=== PATIENT | female | born 1985 | race Caucasian/White ===

== ENCOUNTER 2017-10-04 10:51 | Day surgery (SDC) | payer BC ==
[~2017-10-04] VITALS: Ht 162.6 cm; Wt 83.0 kg
[~2017-10-04 10:51] MED LIST: GENERESS FE CH1 EACH PO; IBUP800 PO; OXYACE5T PO; Verotin-Gr Cap1 EACH PO
== END 2017-10-04 23:04 | disposition home or self-care (01) ==
LOC: ORSCMMR 10:51 → ORSCSDS 12:00 → ORSCMMR 12:00 → ORD 12:00 → ORSCMMR 23:04
PROVIDERS: Obstetrics & Gynecology
PROC: 0UT74ZZ Resection of Bilateral Fallopian Tubes, Percutaneous Endoscopic Approach (ICD-10-PCS; principal; 2017-10-04 12:00)
DX: Z30.2 Encounter for sterilization (principal); N73.6 Female pelvic peritoneal adhesions (postinfective)
CPT/HCPCS: 88302; J0171; J1100; J1885; J2250; J2405; J2550; J2710; J3010; J7120

== ENCOUNTER → 2020-06-21 | Outpatient (CLI) | payer BC ==
[2020-06-22 16:09] LABS: HPV 16 Negative (Negative); HPV 18 Negative (Negative); HPV OTHER HR TYPES Negative (Negative)
== END | disposition home or self-care (01) ==
LOC: LAB SHORT 15:53 → PLD 15:53
PROVIDERS: Obstetrics & Gynecology
DX: Z01.419 Encounter for gynecological examination (general) (routine) without abnormal findings (principal)
CPT/HCPCS: 87624; G0123

== ENCOUNTER → 2022-05-10 | Outpatient (CLI) | payer BC ==
[2022-05-10 14:17] LABS: BASOPHILS ABSOLUTE AUTO 0.08 K/mm3 (0.00-0.23); BASOPHILS PERCENT AUTO 1 % (0-2); EOSINOPHILS ABSOLUTE AUTO 0.29 K/mm3 (0.00-0.68); EOSINOPHILS PERCENT AUTO 3 % (0-6); Hematocrit 29.8 % (33.0-51.0); Hemoglobin 8.9 g/dL (11.5-16.0); IMMATURE GRAN ABSOLUTE AUTO 0.03 K/mm3 (0.00-0.10); IMMATURE GRAN PERCENT AUTO 0 % (0-1); LYMPHOCYTES PERCENT AUTO 18 % (21-46); MONOCYTES ABSOLUTE AUTO 0.57 K/mm3 (0.16-1.47); MONOCYTES PERCENT AUTO 5 % (4-13); Mean Corpuscular HGB 21.5 pg (26.0-34.0); Mean Corpuscular HGB Conc 29.9 g/dL (31.5-36.5); Mean Corpuscular Volume 72 fL (80-100); Mean Platelet Volume 10.6 fL (9.1-12.4); NEUTROPHILS ABSOLUTE AUTO 7.83 K/mm3 (1.96-9.15); NEUTROPHILS PERCENT AUTO 73 % (41-73); Platelet Count 375 K/mm3 (150-400); RDW Coefficient Variation 16.7 % (11.7-14.2); RDW Standard Deviation 43.3 fL (35.1-46.3); Red Blood Cell Count 4.13 M/mm3 (3.80-5.20)
[2022-05-10 14:26] LABS: Albumin, Blood 3.2 g/dL (3.4-5.0); Albumin/Globulin Ratio 0.7 (0.8-1.8); Bilirubin, Total 0.2 mg/dL (0.1-1.0); Bun/Creatinine Ratio 8.2 (12.0-20.0); Calcium, Blood 8.4 mg/dL (8.5-10.1); Creatinine, Blood 0.85 mg/dL (0.40-1.00); Globulin, Blood 4.7 g/dL (2.2-4.0); Potassium, Blood 3.7 mmol/L (3.5-5.5); Total Protein, Blood 7.9 g/dL (6.4-8.2)
== END | disposition home or self-care (01) ==
LOC: LAB SHORT 14:11
PROVIDERS: Physician Assistant
DX: R10.9 Unspecified abdominal pain (principal); R07.89 Other chest pain; I26.99 Other pulmonary embolism without acute cor pulmonale
CPT/HCPCS: 80053; 82150; 83690; 85025; 85379

== ENCOUNTER 2022-05-14 00:39 | Inpatient (IN) | payer BC ==
[~2022-05-14] VITALS: Ht 165.1 cm; Wt 80.0 kg
[2022-05-14 01:22] LABS: BASOPHILS ABSOLUTE AUTO 0.04 K/mm3 (0.00-0.23); BASOPHILS PERCENT AUTO 1 % (0-2); EOSINOPHILS ABSOLUTE AUTO 0.24 K/mm3 (0.00-0.68); EOSINOPHILS PERCENT AUTO 3 % (0-6); Hematocrit 31.3 % (33.0-51.0); Hemoglobin 9.2 g/dL (11.5-16.0); IMMATURE GRAN ABSOLUTE AUTO 0.02 K/mm3 (0.00-0.10); IMMATURE GRAN PERCENT AUTO 0 % (0-1); LYMPHOCYTES ABSOLUTE AUTO 3.69 K/mm3 (0.84-5.20); LYMPHOCYTES PERCENT AUTO 44 % (21-46); MONOCYTES ABSOLUTE AUTO 0.48 K/mm3 (0.16-1.47); MONOCYTES PERCENT AUTO 6 % (4-13); Mean Corpuscular HGB 21.5 pg (26.0-34.0); Mean Corpuscular HGB Conc 29.4 g/dL (31.5-36.5); Mean Corpuscular Volume 73 fL (80-100); Mean Platelet Volume 11.2 fL (9.1-12.4); NEUTROPHILS ABSOLUTE AUTO 4.02 K/mm3 (1.96-9.15); NEUTROPHILS PERCENT AUTO 47 % (41-73); Platelet Count 456 K/mm3 (150-400); RDW Coefficient Variation 17.8 % (11.7-14.2); RDW Standard Deviation 43.7 fL (35.1-46.3); Red Blood Cell Count 4.27 M/mm3 (3.80-5.20); White Blood Cell Count 8.49 K/mm3 (4.00-11.30)
[2022-05-14] MEDS ORDERED: IRON18 MG PO (01:24)
[2022-05-14] MEDS ORDERED: XARELTO1 EAC1 PO (01:24)
[2022-05-14 01:35] LABS: Albumin, Blood 2.9 g/dL (3.4-5.0); Albumin/Globulin Ratio 0.7 (0.8-1.8); Bilirubin, Total 0.3 mg/dL (0.1-1.0); Calcium, Blood 8.4 mg/dL (8.5-10.1); Creatinine, Blood 0.93 mg/dL (0.40-1.00); Globulin, Blood 4.3 g/dL (2.2-4.0); Potassium, Blood 3.9 mmol/L (3.5-5.5); Total Protein, Blood 7.2 g/dL (6.4-8.2)
[2022-05-14 05:20] LABS: Hemoglobin 7.9 g/dL (11.5-16.0); Mean Corpuscular HGB 22.1 pg (26.0-34.0); Mean Corpuscular HGB Conc 30.4 g/dL (31.5-36.5); Mean Corpuscular Volume 73 fL (80-100); Mean Platelet Volume 10.6 fL (9.1-12.4); Platelet Count 349 K/mm3 (150-400); RDW Coefficient Variation 17.4 % (11.7-14.2); RDW Standard Deviation 43.5 fL (35.1-46.3); Red Blood Cell Count 3.58 M/mm3 (3.80-5.20); White Blood Cell Count 11.14 K/mm3 (4.00-11.30)
[2022-05-14 10:35] LABS: Hematocrit 30.9 % (33.0-51.0); Hemoglobin 9.6 g/dL (11.5-16.0)
[2022-05-14 12:37] LABS: Hemoglobin 9.3 g/dL (11.5-16.0)
--- NOTE | 2022-05-14 18:02 | NUR ---
PT SUMMARY: PT ARRIVED IN THE UNIT AT APPROX 0845A, PT IS HERE FOR VAGINAL BLEED RECEIVED 1U PRBC FOR THE SHIFT, TRENDING HEMOGLOBIN. PT HAD ATLEAST 3 PERIPADS USED FIRST PAD HAS SOME SMALL BLOOD CLOTS WITH MEDIUM AMOUNT OF BLOOD THE REST OF THE 2 PADS ARE SMALL AMOUNT WITH NO CLOTS. PT HAS BEEN INDEPENDENT IN THE ROOM DENIES ANY DIZZINESS, PAIN/DISCOMFORT. VITALS HRR SR 80'S, SBP SOFT 95-110'S, SATS ABOVE 95% ON RA, AFEBRILE. DR WATTERS CAME TO SEE PT TODAY STARTED ON DEPO PROVERA 10MG PO DAILY, IRON IV X1, PLAN TO GET IR CONSULT NOT TIL SUNDAY FOR A PROCEDURE AND TO RESTART XARELTO TOMORROW IF HGB IS STABLE AND BLEEDING SLOWS DOWN. PT AND AWARE OF THE PLAN OF CARE. NO OTHER ISSUES AT THIS TIME, SCDS IN PLACE FOR DVT PROPHYLAXIS, DIET RESUMED PT TOLERATED. PT HAS BEEN CALLING APPROPRIATELY ABLE TO MAKE NEEDS KNOWN, CALL LIGHTS IN REACH WILL REPORT TO ONCOMING SHIFT
[2022-05-14 18:37] LABS: Hemoglobin 9.3 g/dL (11.5-16.0)
[2022-05-15 00:33] LABS: Hematocrit 28.8 % (33.0-51.0)
[2022-05-15 06:42] LABS: BASOPHILS ABSOLUTE AUTO 0.05 K/mm3 (0.00-0.23); BASOPHILS PERCENT AUTO 1 % (0-2); EOSINOPHILS ABSOLUTE AUTO 0.16 K/mm3 (0.00-0.68); EOSINOPHILS PERCENT AUTO 2 % (0-6); Hematocrit 31.7 % (33.0-51.0); Hemoglobin 9.6 g/dL (11.5-16.0); IMMATURE GRAN ABSOLUTE AUTO 0.01 K/mm3 (0.00-0.10); IMMATURE GRAN PERCENT AUTO 0 % (0-1); LYMPHOCYTES ABSOLUTE AUTO 2.96 K/mm3 (0.84-5.20); LYMPHOCYTES PERCENT AUTO 34 % (21-46); MONOCYTES ABSOLUTE AUTO 0.45 K/mm3 (0.16-1.47); MONOCYTES PERCENT AUTO 5 % (4-13); Mean Corpuscular HGB 22.2 pg (26.0-34.0); Mean Corpuscular HGB Conc 30.3 g/dL (31.5-36.5); Mean Corpuscular Volume 73 fL (80-100); Mean Platelet Volume 10.8 fL (9.1-12.4); NEUTROPHILS PERCENT AUTO 58 % (41-73); Platelet Count 425 K/mm3 (150-400); RDW Coefficient Variation 19.4 % (11.7-14.2); RDW Standard Deviation 46.8 fL (35.1-46.3); Red Blood Cell Count 4.32 M/mm3 (3.80-5.20); White Blood Cell Count 8.73 K/mm3 (4.00-11.30)
[2022-05-15 07:03] LABS: Albumin/Globulin Ratio 0.7 (0.8-1.8); Bilirubin, Total 0.4 mg/dL (0.1-1.0); Bun/Creatinine Ratio 11.8 (12.0-20.0); Calcium, Blood 8.6 mg/dL (8.5-10.1); Creatinine, Blood 0.76 mg/dL (0.40-1.00); Globulin, Blood 4.2 g/dL (2.2-4.0); Potassium, Blood 3.9 mmol/L (3.5-5.5); Total Protein, Blood 7.2 g/dL (6.4-8.2)
--- NOTE | 2022-05-15 08:02 | NUR ---
SHIFTS SUMMARY PT AOX4 T/O SHIFT, DENIES SIGNIFICANT FEELING OF DIZZINESS OR LIGHTHEADEDNESS. SR 60'S-100'S INCREASING WHEN UP FROM BED TO BATHROOM. + ORTHOSTATICS WHEN UP TO SITTING FROM LAYING, BP BACK UP WITH STANDING. PT HAD SMALL AMOUNTS OF BLEEDING AT START OF SHIFT NOT FILLING A WHOLE PAD IN A SEVERAL HOURS WITH SOME CLOTTING. TOWARDS THE EARLIER AM LATER IN THIS RN'S NOC SHIFT, BLEEDING HAS SEEMED TO INCREASE FILLING WHAT COULD BE CONSIDERED AN AVERAGE PAD IN TWO HOURS WITH SOME CLOTTING. PT ALSO C/O FEELING OF "WHEEZING" SHE DESCRIBES IN HER LUNGS THIS AM, SIMILAR TO SUNDAY WHEN SHE WAS DX WITH BLOOD CLOTS. THIS RN CALLS DR MEZA TO UPDATE AND OBTAIN FURTHER ORDERS, ORDER FOR CHEST XRAY PLACED AND PT TAKEN DOWN TO IMAGING, PT STATES BREATHING FEELS WORSE ON ARRIVAL BACK FROM XRAY AND STATES SOME PAIN DOWN IN R LUNG. LS COARSE WITH CRACKLES ON R SIDE NOT CLEARED WITH COUGHING WHICH APPEARS NAGGING AND INCREASING IN FREQUENCY. REPORT TO DAY RN THIS AM, CONCERNS EXPRESSED FOR POSSIBLE NEED FOR FURTHER DIAGNOSTICS TO R/O WORSENING PE. REPORT GIVEN AT BEDSIDE WITH PT. SATS 97-98% ON RA.
[2022-05-15 09:40] LABS: Hematocrit 31.4 % (33.0-51.0); Hemoglobin 9.6 g/dL (11.5-16.0)
[2022-05-15 10:04] LABS: International Normalized Ratio 1.05
[2022-05-15 11:15] LABS: Hematocrit 30.9 % (33.0-51.0); Hemoglobin 9.5 g/dL (11.5-16.0)
[2022-05-15 16:24] LABS: Hematocrit 29.3 % (33.0-51.0); Hemoglobin 8.9 g/dL (11.5-16.0)
--- NOTE | 2022-05-15 17:55 | NUR ---
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
[2022-05-16 00:29] LABS: Hematocrit 29.6 % (33.0-51.0); Hemoglobin 8.9 g/dL (11.5-16.0)
--- NOTE | 2022-05-16 02:45 | NUR ---
PT UP TO USE BATHROOM, PAD IS REED THAN PRIOR ABOUT 2 HRS AGO NOW. NO CLOTS SEEN. PT MORE HYPOTENSIVE AT THIS TIME, THIS RN HAS CONTACTED PROVIDER, ORDERS PLACED FOR STAT H&H TO NOTIFY PROVIDER WITH RESULT AND FLUID BOLUS AT THIS TIME FOR LOW BP. QUAN FROM ICU COMING TO OBTAIN POWERGLIDE D/T FREQUENT LAB DRAWS AND NEED FOR SECOND LINE FOR BOLUS D/T HEPARIN INFUSING. PT IS AGREEABLE TO THIS PLAN. THIS RN WEIGHS PAD, 2 OZ OF BLOOD IN THIS PAD.
--- NOTE | 2022-05-16 03:05 | NUR ---
PT UPDATE QUAN RN INSERTS POWERGLIDE, NS STARTED INFUSING PER BOLUS ORDERS FOLLOWING BLOOD DRAW FOR STAT H&H. PT IS AOX4, BREATHING EVEN AND UNLABORED AT THIS TIME. BP IS 94/43 AT THIS TIME MAP (57), WILL CONTINUE MONITORING BP AT BEDSIDE FLUID BOLUS INFUSES AT THIS TIMES. PT HR UP TO 130'S WHEN UP TO BATHROOM PRIOR TO POWERGLIDE INSERTION, HOWEVER, BP INCREASED WHEN TAKEN AFTER PT UP TO SIDE OF BED AND PT DENIED ANY DIZZINESS.
[2022-05-16 03:06] LABS: Hematocrit 28.9 % (33.0-51.0)
--- NOTE | 2022-05-16 05:45 | NUR ---
SHIFT SUMMARY PT AOX4, BREATHING EVEN AND UNLABORED T/O SHIFT, SR-ST 70'S-100'S. PT APPEARED TO TACH UP TO 130'S WHEN UP TO BATHROOM PRIOR TO POWERGLIDE INSERTION. APPEARED TO DECREASE NEXT TIME UP TO BATHROOM FOLLOWING FLUID BOLUS. CONCERN FOR INCREASED HYPOTENSION, BLEEDING HAD PICKED UP FOLLOWING INCREASE IN HEPARIN GTT AND FOLLOWING HEPARIN BOLUS. BP WAS IMPROVED FOLLOWING FLUID BOLUS AND H&H ORDERED BY DR BAY STABLE. VAGINAL BLEEDING APPEARED LESS ON NEXT TRIP TO THE BATHROOM ABOUT 2 HOURS LATER FROM PRIOR CHANGED PAD, DID NOT APPEARS TO BE FULL OR SATURATED. MINIMAL CLOTS. PT DENIES CP/SOB/DIZZINESS. HEP GTT CONTINUES AT THIS TIME AT 20 U/KG/HR.
--- NOTE | 2022-05-16 06:45 | NUR ---
LAB UPDATE DISCUSSED WITH LAB AND BLOOD BANK ASSISTANT PUSHING SEPARATE LAB ORDERS TO SAME TIME FOR SINGLE DRAW FOR H&H, APTT, AND BMP D/T RECENT H&H DRAW.
--- NOTE | 2022-05-16 08:00 | NUR ---
INITIAL ASSESSMENT: Patient is awake, lying in bed watching TV. She is alert and oriented. She denies pain at this time, just notes some discomfort to her right AC IV site. HRR. LS CTA, Biox 98% on RA. Pt has PE, currrently has hep gtt running at 20 units/kg/hr. BT+, pt states she has not had BM since arrival to the hospital, she states it is normal for her to go a couple of days. PPP. PT states vaginal bleeding is about the same, she is saturating a pad approx every 2-3 hours. VSS. Patient denies other needs at this time. Call light in reach.
[2022-05-16 08:45] LABS: Hematocrit 28.3 % (33.0-51.0); Hemoglobin 8.9 g/dL (11.5-16.0)
[2022-05-16 09:10] LABS: Bun/Creatinine Ratio 11.6 (12.0-20.0); Calcium, Blood 8.5 mg/dL (8.5-10.1); Creatinine, Blood 0.87 mg/dL (0.40-1.00); Potassium, Blood 3.8 mmol/L (3.5-5.5)
[2022-05-16 09:57] LABS: SARS-Cov-2 (COVID-19) PCR, MMC NEGATIVE (NEGATIVE)
--- NOTE | 2022-05-16 11:30 | NUR ---
UPDATE: VSS. Patient is resting comfortably, she was able to take a shower with her husbands assistance. Hep gtt increased to 21 units/kg/hr. Dr. Weathers came by the room and consented the patient. The patient denies other needs at this time. Call light in reach.
--- NOTE | 2022-05-16 13:50 | NUR ---
Pt to the petroleum refinery laborer for uterine embolization.
--- NOTE | 2022-05-16 16:10 | NUR ---
Patient returned from the excavation laborer after a successful uterine embolization. She reports minimal cramping at this time. Right groin site with angioseal, CHG dressing CDI. VSS. Hep gtt to resume 2 hours post procedure, pharmacy made aware. Patient is supine. Call light in reach, will continue to monitor.
[2022-05-16 16:27] LABS: Hematocrit 26.8 % (33.0-51.0); Hemoglobin 8.2 g/dL (11.5-16.0)
--- NOTE | 2022-05-16 18:19 | NUR ---
SUMMARY: Patient has been alert and oriented T/O the shift. She has denied pain most of the shift, but reported cramping [id number] relieved well with 1 mg Dilaudid. HRR, Blood pressure has remained stable T/O the shift. LS CTA, Biox has been 98-100% on RA, she has a previously diagnosed, on Hep gtt at 21 units/kg/hr. BT+. She has been having some abd cramping post-procedure. She has been saturating 2/3 of a pad every 2-3 hours, H/H Q6 has remained stable. Right groin site with angioseal and CHG site has remained stable, no oozing present, and soft. Hep gtt restarted at 1745. Patient is now up to 60 degrees with stable groin site. No other acute changes, will report to oncoming RN.
[2022-05-16 22:39] LABS: Hematocrit 26.5 % (33.0-51.0); Hemoglobin 8.4 g/dL (11.5-16.0)
[2022-05-17 04:12] LABS: Hematocrit 28.2 % (33.0-51.0); Hemoglobin 8.7 g/dL (11.5-16.0)
--- NOTE | 2022-05-17 05:47 | NUR ---
PT WALKED TO BATHROOM 3-4 TIMES, NO BM BUT BS HYPERACTIVE AND PT REPORTS PASSING QUITE A BIT OF GAS, VSS, ON RA, HEPARIN AT 21 UNITS/27.7MLS PER HOUR, PT RESTED MUCH OF THE SHIFT, HGB REMAINING STABLE AT 8.7, PREVIOUS VALUE WAS 8.4, , PAIN TREATED WITH DILAUDID X'S 1 AND PHENERGA GIVEN FOR NAUSEA X'S 1
[2022-05-17 10:32] LABS: Hematocrit 26.7 % (33.0-51.0); Hemoglobin 8.3 g/dL (11.5-16.0)
[2022-05-17] MEDS ORDERED: BENZ100A PO (13:27)
[2022-05-17] MEDS ORDERED: HYDR1TAB94 PO (13:28)
[2022-05-17] MEDS ORDERED: ONDA4ODT MM (13:29)
[2022-05-17] MEDS ORDERED: MEDR10 PO (13:30)
--- NOTE | 2022-05-17 14:48 | NUR ---
DISCHARGE NOTE PATIENT ALERT AND ORIENTED X4. PATIENT WAS PROVIDED DISCHARGE INSTRUCTIONS. EDUCATED PATIENT ON NEW MEDICATIONS AND INFORMED WHERE AND WHEN TO FOLLOW UP AFTER DISCHARGE. HEPARIN DRIP DISCONTINUED AND PROVIDED PATIENT WITH INITIAL DOSE OF XARELTO. POWERGLIDE REMOVED. PATIENT ESCORTED TO HOME VEHICLE.
== END 2022-05-17 13:58 | disposition home or self-care (01) | DRG 749 ==
LOC: ER 00:39 → PCU 06:23
PROVIDERS: Family Medicine; Radiology Diagnostic Radiology; Student in an Organized Health Care Education/Training Program; ADMIT Internal Medicine
PROC: 30233N1 Transfusion of Nonautologous Red Blood Cells into Peripheral Vein, Percutaneous Approach (ICD-10-PCS; 2022-05-14)
PROC: 04LE3ZT Occlusion of Right Uterine Artery, Percutaneous Approach (ICD-10-PCS; principal; 2022-05-16)
PROC: 04LF3ZU Occlusion of Left Uterine Artery, Percutaneous Approach (ICD-10-PCS; 2022-05-16)
PROC: B41FYZZ Fluoroscopy of Right Lower Extremity Arteries using Other Contrast (ICD-10-PCS; 2022-05-16)
PROC: B44LZZZ Ultrasonography of Femoral Artery (ICD-10-PCS; 2022-05-16)
DX: D25.9 Leiomyoma of uterus, unspecified (principal); R57.8 Other shock; D62 Acute posthemorrhagic anemia; D68.59 Other primary thrombophilia; C54.1 Malignant neoplasm of endometrium; N92.0 Excessive and frequent menstruation with regular cycle; I95.9 Hypotension, unspecified; T45.515A Adverse effect of anticoagulants, initial encounter; R55 Syncope and collapse; Z20.822 Contact with and (suspected) exposure to COVID-19; Z86.711 Personal history of pulmonary embolism; Z79.01 Long term (current) use of anticoagulants; Z79.899 Other long term (current) drug therapy; Z98.51 Tubal ligation status
CPT/HCPCS: 36415; 36430; 37243; 71046; 75716; 75736; 76830; 76856; 76937; 80048; 80053; 84703; 85014; 85018; 85025; 85027; 85610; 85730; 86850; 86900; 86901; 86923; 93005; 93010; 93306; 93970; 96360; 99152; 99153; 99285-25; A9270; C1751; C1760; C1769; C1887; C1894; J0690; J1170; J1644; J1885; J2250; J2405; J2916; J3010; J7030; P9016; Q9967; U0004

== ENCOUNTER 2023-02-15 06:01 | Emergency (ER) | payer BC ==
[~2023-02-15] VITALS: Ht 165.1 cm; Wt 79.8 kg
[~2023-02-15 06:01] MED LIST changes: +BENZ100A PO; +HYDR1TAB94 PO; +IRON18 MG PO; +MEDR10 PO; +Norethindrone0.35 MG PO; +ONDA4ODT MM; +XARELTO1 EAC1 PO; +XARELTO20 MG PO; +[UNRECOGNIZED DRUG - CODE] PO
[2023-02-15 07:18] LABS: BASOPHILS ABSOLUTE AUTO 0.03 K/mm3 (0.00-0.23); BASOPHILS PERCENT AUTO 1 % (0-2); EOSINOPHILS ABSOLUTE AUTO 0.05 K/mm3 (0.00-0.68); EOSINOPHILS PERCENT AUTO 1 % (0-6); Hematocrit 50.1 % (33.0-51.0); Hemoglobin 16.9 g/dL (11.5-16.0); IMMATURE GRAN ABSOLUTE AUTO 0.01 K/mm3 (0.00-0.10); IMMATURE GRAN PERCENT AUTO 0 % (0-1); LYMPHOCYTES ABSOLUTE AUTO 2.03 K/mm3 (0.84-5.20); LYMPHOCYTES PERCENT AUTO 32 % (21-46); MONOCYTES PERCENT AUTO 6 % (4-13); Mean Corpuscular HGB 30.7 pg (26.0-34.0); Mean Corpuscular HGB Conc 33.7 g/dL (31.5-36.5); Mean Corpuscular Volume 91 fL (80-100); Mean Platelet Volume 10.2 fL (9.1-12.4); NEUTROPHILS PERCENT AUTO 61 % (41-73); Platelet Count 273 K/mm3 (150-400); RDW Coefficient Variation 11.5 % (11.7-14.2); RDW Standard Deviation 38.5 fL (35.1-46.3); Red Blood Cell Count 5.51 M/mm3 (3.80-5.20); White Blood Cell Count 6.42 K/mm3 (4.00-11.30)
[2023-02-15 07:46] LABS: Albumin/Globulin Ratio 0.9 (0.8-1.8); Bilirubin, Total 0.7 mg/dL (0.1-1.0); Calcium, Blood 9.4 mg/dL (8.5-10.1); Creatinine, Blood 0.87 mg/dL (0.40-1.00); Globulin, Blood 4.4 g/dL (2.2-4.0); Potassium, Blood 3.8 mmol/L (3.5-5.5); Total Protein, Blood 8.4 g/dL (6.4-8.2)
[2023-02-15 08:08] VITALS: BP 99/64
== END 2023-02-15 08:13 | disposition home or self-care (01) ==
LOC: ER 06:01
PROVIDERS: Emergency Medicine
DX: R07.89 Other chest pain (principal); R53.83 Other fatigue; R06.02 Shortness of breath; Z79.899 Other long term (current) drug therapy; D64.9 Anemia, unspecified
CPT/HCPCS: 71260; 80053; 84703; 85025; 93005; 93010; 99285-25; Q9967

== ENCOUNTER 2023-02-28 08:57 | Day surgery (SDC) | payer BC ==
[2023-02-28] VITALS (13 sets, daily range): BP systolic 104–119; BP diastolic 54–94
[~2023-02-28] VITALS: Ht 162.6 cm; Wt 80.8 kg
--- NOTE | 2023-02-28 10:04 | NUR ---
History, Chart, Medications and Allergies reviewed before start of procedure. Ambulatory in Day Surgery. Pre-Op teaching done. Pt verbalizes understanding. Patient confirms NPO status and agrees with scheduled surgery. Patient reports completing Chlorhexadine shower X2 prior to admission to hospital. Surgical site prepped with 2% Chlorhexidine cloth wipe. Lungs clear T/O to Auscultation. Patient States Post-Procedure ride home has been arranged.
--- NOTE | 2023-02-28 13:04 | NUR ---
PT ARRIVED TO UNIT FROM PACU TRANSFERRED PT FROM [facility] TO BED. ORIENTED TO USE OF CALL LIGHT AND ROOM.
[2023-02-28 15:19] LABS: BASOPHILS ABSOLUTE AUTO 0.03 K/mm3 (0.00-0.23); BASOPHILS PERCENT AUTO 0 % (0-2); EOSINOPHILS ABSOLUTE AUTO 0.05 K/mm3 (0.00-0.68); EOSINOPHILS PERCENT AUTO 0 % (0-6); Hemoglobin 15.1 g/dL (11.5-16.0); IMMATURE GRAN ABSOLUTE AUTO 0.05 K/mm3 (0.00-0.10); IMMATURE GRAN PERCENT AUTO 0 % (0-1); LYMPHOCYTES ABSOLUTE AUTO 0.56 K/mm3 (0.84-5.20); LYMPHOCYTES PERCENT AUTO 3 % (21-46); MONOCYTES ABSOLUTE AUTO 0.12 K/mm3 (0.16-1.47); MONOCYTES PERCENT AUTO 1 % (4-13); Mean Corpuscular HGB 30.7 pg (26.0-34.0); Mean Corpuscular HGB Conc 33.6 g/dL (31.5-36.5); Mean Corpuscular Volume 92 fL (80-100); Mean Platelet Volume 10.2 fL (9.1-12.4); NEUTROPHILS ABSOLUTE AUTO 16.14 K/mm3 (1.96-9.15); NEUTROPHILS PERCENT AUTO 95 % (41-73); Platelet Count 280 K/mm3 (150-400); RDW Coefficient Variation 11.3 % (11.7-14.2); RDW Standard Deviation 38.7 fL (35.1-46.3); Red Blood Cell Count 4.92 M/mm3 (3.80-5.20); White Blood Cell Count 16.95 K/mm3 (4.00-11.30)
[2023-02-28] MEDS ORDERED: Percocet 5-3251 EACH PO (17:04)
[2023-02-28] MEDS ORDERED: IBU800 MG PO (17:05)
--- NOTE | 2023-02-28 18:21 | NUR ---
DISCHARGING PT VOIDED, PAIN CONTROLLED, AND TOLERATED PO INTAKE. DESIRES TO DC HOME. SPOUSE PICKED UP PAIN PRESCRIPTIONS. REVIEWED DC PAPERWORK WITH PT; VERBALIZED UNDERSTANDING. IV DC'D. PT GETTING DRESSED.
--- NOTE | 2023-02-28 18:30 | NUR ---
DISCHARGED PT LEFT UNIT IN WC W/POSSESSIONS AND DC PAPERWORK IN HAND, ACCOMPANIED BY SPOUSE.
== END 2023-02-28 18:35 | disposition home or self-care (01) ==
LOC: ORSCMMR 08:57 → ORD 10:30 → ORSCMMR 10:30 → SURS 12:38 → ORSCMMR 18:35
PROVIDERS: Obstetrics & Gynecology
PROC: 0UT9FZZ Resection of Uterus, Via Natural or Artificial Opening With Percutaneous Endoscopic Assistance (ICD-10-PCS; principal; 2023-02-28 10:30)
DX: N93.8 Other specified abnormal uterine and vaginal bleeding (principal); D50.0 Iron deficiency anemia secondary to blood loss (chronic); Z86.711 Personal history of pulmonary embolism; Z79.01 Long term (current) use of anticoagulants
CPT/HCPCS: 36415; 85025; 88307; A9270; J0690; J1100; J2250; J2371; J2405; J2704; J3010; J7120